=== PATIENT | female | born 1990 | race Two or more races ===

== ENCOUNTER 2025-03-29 15:41 | Emergency (ER) | payer MEDICAID, SELFPAY ==
[2025-03-29 15:42] VITALS: BMI 32.3
[2025-03-29 16:28] VITALS: BP 116/67; PULSE 80; RESP 18; TEMP 37.2; O2SAT 99
--- NOTE | 2025-03-29 16:37 | PD.EDRME ---
Rapid Medical Screening Exam RME Arrival date/time: 03/29/25 15:41 This is a 34-year-old female that comes in with complaints of abdominal pain back pain and lower pelvic pain. Patient denies any urinary symptoms. Patient states that she is currently on control. Patient does not suspect she is . Patient reports history of in the past. I have greeted and performed a focused initial assessment of this patient. Initial appropriate labs ordered at this time. A comprehensive ED assessment and evaluation of the patient and analysis of all test and completion of medical decision making process will be conducted by additional ED provider. Chief Complaint: Abdominal Pain Time Seen by Provider: 03/29/25 16:24 Vital signs: Vital Signs Temperature 98.9 F 03/29/25 16:28 Pulse Rate 80 03/29/25 16:28 Respiratory Rate 18 03/29/25 16:28 Blood Pressure 116/67 03/29/25 16:28 Pulse Oximetry (%) 99 03/29/25 16:28 Oxygen Delivery Method Room Air 03/29/25 16:28
[2025-03-29 17:10] LABS: Basophils % (Auto) 0 % (0-2.5); Eosinophils # (Auto) 0.1 Thou/mm3 (0.0-0.5); Eosinophils % (Auto) 1 % (0-10); Hematocrit 35.7 % (36.0-46.0); Hemoglobin 12.5 g/dL (12.0-16.0); Immature Granulocytes % (Auto) 0 % (0-0); Immature Granulocytes Auto 0.02 Thou/mm3 (0.00-0.00); Lymphocytes # (Auto) 2.4 Thou/mm3 (1.0-4.8); Lymphocytes % (Auto) 29 % (10-50); Mean Corpuscular Hemoglobin 29.3 pg (25.0-35.0); Mean Corpuscular Volume 84 fL (80-100); Monocytes # (Auto) 0.5 Thou/mm3 (0.0-0.8); Monocytes % (Auto) 5 % (0-12); Neutrophils # (Auto) 5.4 Thou/mm3 (1.8-7.7); Neutrophils % (Auto) 65 % (37-80); Nucleated Red Blood Cell % 0 /100 WBC (0); Platelet Count 281 Thou/mm3 (140-440); RDW Standard Deviation 38.1 fL (36.4-46.3); Red Blood Count 4.26 Miln/mm3 (4.00-5.20); White Blood Count 8.4 Thou/mm3 (3.6-11.0)
[2025-03-29 17:21] LABS: Collection Type, Urine Voided
[2025-03-29 17:26] LABS: HCG Qualitative,Urine Negative
[2025-03-29 17:29] LABS: Bilirubin,Urine Negative (Negative); Blood,Urine Negative (Negative); Clarity,Urine Clear (Clear/Hazy); Color,Urine Lt-Yellow (Lt Yel-Yel); Culture Indicated,Urine Not Indicated; Glucose, Urine Negative (Negative); Ketones,Urine Negative (Negative); Leukocyte Esterase,Urine Negative (Negative); Nitrite,Urine Negative (Negative); Protein,Urine Negative (Neg - Trace); RBC,Urine 4 /hpf (0-3); Specific Gravity,Urine 1.027 (1.001-1.035); Squamous Epithelial Cell,Urine 8 /hpf (0-5); Urobilinogen,Urine Negative mg/dL (0.0-1.0); WBC,Urine 1 /hpf (0-5)
[2025-03-29 17:31] LABS: Alanine Aminotransferase 45 U/L (10-49); Albumin, Serum 4.5 gm/dL (3.5-5.0); Albumin/Globulin Ratio 1.8 (1.2-2.2); Alkaline Phosphatase 75 U/L (46-116); Anion Gap 9 (7-16); Aspartate Amino Transferase 28 U/L (0-34); BUN/Creatinine Ratio 17 Ratio (12-20); Bilirubin,Total 0.4 mg/dL (0.3-1.2); Blood Urea Nitrogen 10 mg/dL (9-23); Calcium 8.8 mg/dL (8.3-10.6); Calcium (Corrected) 8.8 mg/dL (8.5-10.1); Carbon Dioxide 25.8 mMol/L (20.0-31.0); Chloride 105 mMol/L (98-107); Creatinine (Component) 0.6 mg/dL (0.6-1.3); Estimated Creatinine Clearance 114.3 mL/min (>60); Globulin 2.5 gm/dL (2.3-3.5); Glucose 94 mg/dL (74-106); Lipase 41 U/L (12-53); Osmolality,Calculated 278 (275-295); Potassium 3.8 mMol/L (3.4-5.1); Sodium 140 mMol/L (136-145); eGFR > 60 See Note
--- NOTE | 2025-03-29 19:27 | XR_ITS ---
Examination: CT abdomen and pelvis without contrast. Coronal 3-D reconstructions. Sagittal 2-D reconstructions. Date and time of exam:March 29, 2025 1939 hours Comparison May 05, 2023 INDICATIONS: Right-sided abdominal pain today, history kidney stones CTDI: vol (mGy): 8 DLP: (mGycm): 472 Technique: Axial images of the abdomen have been obtained, 3 mm slice thickness Intravenous contrast material has not been administered. Low dose protocols were performed. One or more of the following dose reduction techniques were used; automated exposure control, adjustment of the mA and/or KV according to patient size, use of iterative reconstruction technique. Findings: No focal liver or splenic lesions Gallstones No pancreatic or adrenal mass 1 mm lower pole nonobstructing left renal calculus, no hydronephrosis or ureteral calculi Aorta normal size and 28 mm fat-containing umbilical hernia Normal appendix No bowel obstruction Hypodense left adnexal mass 4.2 cm Contracted urinary bladder The osseous structures are intact IMPRESSION: 1 mm lower pole nonobstructing left renal calculus, no hydronephrosis or ureteral calculi Normal appendix Recommend pelvic sonography to assess 4.2 cm hypodense left adnexal mass
--- NOTE | 2025-03-29 19:27 | EDNOTE_ITS ---
ED Abdominal Pain RME/HPI General Chief Complaint: Abdominal Pain Stated complaint: ABD PAIN FOR 3 DAYS Time seen by provider: 03/29/25 16:24 Arrival date/time: 03/29/25 15:41 RME / HPI RME / HPI narrative: 03/29/25 15:41 This is a 34-year-old female that comes in with complaints of abdominal pain back pain and lower pelvic pain. Patient denies any urinary symptoms. Patient states that she is currently on control. Patient does not suspect she is . Patient reports history of in the past. I have greeted and performed a focused initial assessment of this patient. Initial appropriate labs ordered at this time. A comprehensive ED assessment and evaluation of the patient and analysis of all test and completion of medical decision making process will be conducted by additional ED provider. This section includes all my notes and documentations, including HPI, PE, and ED course. Kendrick Islas MD HPI: 34 y/o female with SHx of C-sections and Hx of Gallstones presents to ED c/o worsening upper and lower abdominal pain x 4 days. Pain began to worsen yesterday. Denies any vomiting, fever, dysuria, hematuria, and vaginal bleeding. Patient has been eating fairly well. LMP was 4 years ago and is on control shot. No other complaints. ROS: All negative except as documented in HPI. Physical Exam: General: Alert and oriented. No acute distress when remaining still. Eyes: Conjunctivae and lids clear. ENT: No nasal congestion. Neck: Supple. Heart: RRR. Lungs: No respiratory distress. Good air movement. No rhonchi, wheezing, rales. Abdomen: Epigastric, RUQ, and pelvic tenderness. Normal bowel sounds. No distension. No rebound or guarding. Back: No CVA tenderness. Skin: Warm and dry. Neuro: Alert and oriented X 3. I reviewed all diagnostic test results. My review of the Transvaginal US report is left ovarian simple cyst 4.8 x 4.5 x 3.6 cm. My review of the Gallbladder US report is Cholelithiasis, negative for cholecystitis. My review of the Abdomen/Pelvis CT report is no acute findings. Blood tests and urine tests unremarkable. At this point, diagnoses include Gallstones, large ovarian Cyst. Treatment here included Tylenol with Codeine. Significant improvement noted. Recommended more outpatient care. Based on my best medical judgment, made decision no further evaluation or treatment indicated at this time. Patient understands and agrees to the discharge instructions customized and printed, see below. Discharge Instructions from Dr. Islas: 1. After evaluation, your upper abdominal pain is due to gallstone(s).? You need gallbladder to help digest fatty foods. 2. So to prevent future attacks, avoid all fatty and oily and greasy and buttery and dairy foods.? This usually means take out and fast food restaurants. 3. Zofran for nausea/vomiting.? Tylenol with codeine for severe pain.?? 4. Your lower abdominal pain is due to large ovarian cyst. Large ovarian cyst and ruptured cyst can cause severe pain. Apply ice or heat if helpful. Ibuprofen and Tylenol with codeine as needed. 5. See a private doctor on 03/30/2025 for recheck and further care. Ask to review all test results and official radiology reports, to make sure you receive all necessary follow-ups and monitoring. Ask for help seeing a general surgeon to discuss elective surgical removal of your gallbladder. Ask for a referral to see out and out cigar maker hand to help with her large ovarian cyst. 6. Seek immediate medical care with intolerable pain, fever, or with any concerns. Kendrick Islas MD Related Data Previous Rx's ?Medication ?Instructions ?Recorded meloxicam 7.5 mg tablet 7.5 mg PO QDAY #10 tabs 04/17 08/09 ondansetron 4 mg disintegrating 4 mg PO Q8H #14 tabs 0 05/05/23 tablet acetaminophen 300 mg-codeine 30 mg 2 tab PO Q8H PRN pa in #20 tabs 03/29/25 tablet ondansetron 4 mg disintegrating 4 mg PO TID PRN nausea and 03/29/25 tablet vomiting 30 days #10 tabs Allergies Allergy/AdvReac Type Severity Reaction Status Date / Time No Known Allergies Allergy Verified 03/29/25 15:44 Review of Systems Review of Systems Systems Reviewed: All systems reviewed, normal except as documented Past Medical History Past Medical History REPRODUCTIVE: Positive Previous Pregnancies Surgical History SURGICAL: Positive Section ED Exam Narrative Physical exam: Refer to HPI above Course Quality Measures none Orders Category Date Time Status CT abdomen pelvis wo con Stat Exams 03/29/25 19:27 Completed US gall bladder Stat Exams 03/29/25 19:27 Completed US transvaginal Stat Exams 03/29/25 19:27 Completed CBC Stat Lab 03/29/25 16:50 Completed Comprehensive Metabolic Panel Stat Lab 03/29/25 16:50 Completed HCG Qualitative,Urine Stat Lab 03/29/25 17:11 Completed Lipase Stat Lab 03/29/25 16:50 Completed Urinalysis, C/S if Indicated Stat Lab 03/29/25 17:11 Completed ACETAMINOPHEN w/COD 300-30 [Tylenol w/Cod #3] Med 03/29/25 20:22 Discontinued 2 tab PO X1 ONE Vital Signs Vital signs: Vital Signs Temperature 98.9 F 03/29/25 16:28 Pulse Rate 80 03/29/25 16:28 Respiratory Rate 18 03/29/25 16:28 Blood Pressure 116/67 03/29/25 16:28 Pulse Oximetry (%) 99 03/29/25 16:28 Oxygen Delivery Method Room Air 03/29/25 16:28 Abdominal Pain MDM MDM Narrative MDM Narrative:: Scribe Attestation: IJosette, am scribing for and in the presence of Dr. Islas. Provider Notation: Although this document has been carefully reviewed, there may still be some phonetic and other typographical errors.? These errors are purely grammatical due to imperfections in the software program and should not be construed in any way to? compromise the substance of the patient's medical care during this visit. 34 y/o female with SHx of C-sections and Hx of Gallstones presents to ED c/o worsening lower abdominal pain x 4 days. Patient data External records reviewed:: [facility] previous records (Prior ED records from 05/05/23 reviewed. Patient was seen for Gallstones.) Clinical information provided by:: patient Social determinants that could affect healthcare access:: none Patient has the following chronic illnesses:: None reported How is presenting disease/condition affected by chronic disease/condition?: no chronic disease Evaluation data The following diagnostics were reviewed and interpreted by me:: lab results and radiology exam(s) Lab and/or radiology exams considered but not ordered:: None Interpretation Summary: I reviewed all diagnostic test results. My review of the Transvaginal US report is left ovarian simple cyst 4.8 x 4.5 x 3.6 cm. My review of the Gallbladder US report is Cholelithiasis, negative for cholecystitis. My review of the Abdomen/Pelvis CT report is no acute findings. Blood tests and urine tests unremarkable. Medications / Prescriptions Medications or Prescriptions considered but not ordered:: None Medication administrations:: Medication Administration History Discontinued Medications Acetaminophen/Codeine Phosphate (Acetaminophen W/Cod 300-30 Tablet) 2 tab PO X1 ONE Stop: 03/29/25 20:23 Last Admin: 03/29/25 20:36 Dose: 2 tab Documented By: IMTIAZ Tylenol with Codeine Consultations Consultation(s) initiated? (list below): No Diagnosis Differential diagnosis abdominal pain: abdominal pain, acute appendicitis, calculus of kidney, constipation, diverticulitis, endometriosis, gastroenteritis, pancreatitis, small bowel obstruction and other (Biliary colic, large ovarian cyst, ruptured ovarian cyst) Most likely diagnosis given after review of the tests above:: Gallstones, large ovarian Cyst Admission Indicated Admission indicated?: not indicated Explain why admission is indicated or not indicated:: With significant improvement, there was no indication for admission. Admission Request Was there a request for admission?: No Disposition Plan Disposition Plan: Discharge Discharge Attestation Discharge Attestation: The patient and all family members were given an opportunity to ask questions and understood the discharge instructions. Discharge instructions specifically effects, indications for sooner follow up or return to the emergency department, and the expected course of current diagnosis. Patient condition: Stable Discharge Plan Plan Patient Disposition: HOME (Self Care) Prescriptions/Referrals Prescriptions/Med Rec: New acetaminophen-codeine 300-30 mg tablet 2 tab PO Q8H MDD 6 PRN (Reason: pain) Qty: 20 0RF ondansetron 4 mg tablet,disintegrating 4 mg PO TID PRN (Reason: nausea and vomiting) 30 Days Qty: 10 0RF No Action ondansetron 4 mg tablet,disintegrating 4 mg PO Q8H Qty: 14 0RF meloxicam 7.5 mg tablet 7.5 mg PO QDAY Qty: 10 0RF Referrals: No Primary/Family,Physician [Primary Care Provider] - In 1 week Problem List Clinical Impression: Gallstones, Ovarian cyst Patient/Caregiver Discharge Instructions Discharge Activity: activity as tolerated Education Materials: ED Gallstones with Biliary Colic, ED Ovarian Cyst Additional Instructions: Discharge Instructions from Dr. Islas: 1. After evaluation, your upper abdominal pain is due to gallstone(s).? You need gallbladder to help digest fatty foods. 2. So to prevent future attacks, avoid all fatty and oily and greasy and buttery and dairy foods.? This usually means take out and fast food restaurants. 3. Zofran for nausea/vomiting.? Tylenol with codeine for severe pain.?? 4. Your lower abdominal pain is due to large ovarian cyst. Large ovarian cyst and ruptured cyst can cause severe pain. Apply ice or heat if helpful. Ibuprofen and Tylenol with codeine as needed. 5. See a private doctor on 03/30/2025 for recheck and further care. Ask to review all test results and official radiology reports, to make sure you receive all necessary follow-ups and monitoring. Ask for help seeing a general surgeon to discuss elective surgical removal of your gallbladder. Ask for a referral to see out and out cigar maker hand to help with her large ovarian cyst. 6. Seek immediate medical care with intolerable pain, fever, or with any concerns. Instrucciones de diana del Dr. Islas: 1. Despu?s de la evaluaci?n, carreon dolor abdominal superior se debe a c?lculos biliares. Necesita la ves?cula biliar para digerir los alimentos grasos. 2. Para prevenir futuros ataques, evite todos los alimentos grasosos, aceitosos, con mantequilla y l?cteos. [place] generalmente implica comida para llevar y restaurantes de comida r?pida. 3. Zofran para las n?useas y los v?mitos. Tylenol con code?na para el dolor intenso. 4. Carreon dolor abdominal inferior se debe a un quiste ov?rico nicole. Un quiste ov?rico nicole y un quiste roto pueden causar dolor intenso. Aplique hielo o calor si le resulta ?til. Ibuprofeno y Tylenol con code?na seg?n sea necesario. 5. Consulte con un m?dico privado el 30/03/2025 para hilda nueva revisi?n y atenci?n adicional. S[place]ite la revisi?n de todos los resultados de las pruebas y los informes radiol?gicos oficiales para asegurarse de recibir todos los seguimientos y la monitorizaci?n necesarios. [place] ayuda para consultar con un cirujano general para hablar sobre la extirpaci?n quir?rgica electiva de carreon ves?cula biliar. [place] hilda derivaci?n a un ginec?logo para que le ayude con carreon gran quiste ov?rico. 6. Busque atenci?n m?dica inmediata si tiene dolor insoportable, fiebre o cualquier inquietud. Print Language: Welsh Stand Alone Forms: Emily Award Info., Patient Portal Info Letter
--- NOTE | 2025-03-29 19:27 | XR_ITS ---
Examination: Abdomen sonogram, Limited Date and time of exam: March 29, 2025 2043 hours INDICATIONS: Right upper abdominal pain beginning 3 days ago Technique: Real-time hernandez scale transabdominal sonographic images of the upper abdomen obtained. Findings: Multiple gallstones Gallbladder wall 0.3 cm no edema Common bile duct 0.3 cm Pancreatic head 2.3 cm Liver 15.7 cm fatty infiltration Normal hepatopedal portal venous O Patent IVC IMPRESSION: Cholelithiasis, negative for cholecystitis
--- NOTE | 2025-03-29 19:27 | XR_ITS ---
Examination: Transvaginal ultrasound of the pelvis, complete Technique: Transvaginal sonographic images pelvis performed using hernandez scale imaging Exam date and time: March 29, 20252052 hours INDICATIONS: Pelvic pain beginning 3 days ago FINDINGS: Uterus 9.7 cm endometrial stripe 1.4 cm Free fluid in the endometrium No uterine mass or intrauterine gestation Right ovary 2.9 cm arterial flow Left ovary 5.7 cm arterial flow 4.8 x 4.5 cm cyst IMPRESSION: Free fluid in the endometrium, no uterine mass Left ovarian simple cyst 4.8 x 4.5 x 3.60
[2025-03-29] MEDS: ACETAMINOPHEN w/COD 300-30 TABLET 2 TAB PO (20:36)
== END 2025-03-29 22:17 | disposition home or self-care (01) ==
PROVIDERS: Nurse Practitioner Family; Emergency Provider Emergency Medicine
DX: K80.20 Calculus of gallbladder without cholecystitis without obstruction (principal); N83.202 Unspecified ovarian cyst, left side
CPT/HCPCS: 36415; 74176; 76705; 76830; 80053; 81001; 81025; 83690; 85025; 99284; A9270